=== PATIENT | female | born 1995 | race African-American/Black ===

== ENCOUNTER 2018-09-02 14:04 | Emergency (ER) | payer MEDICAID ==
[2018-09-03] MEDS ORDERED: PREPLUS CA-FE1 EACH PO (10:25)
[2018-09-03] MEDS ORDERED: ZOFRAN ODT4 MG/UDTAB PO (12:19)
== END 2018-09-02 15:32 | disposition left against medical advice (07) ==
LOC: D.ER 14:04
DX: O26.90 Pregnancy related conditions, unspecified, unspecified trimester (principal); R55 Syncope and collapse

== ENCOUNTER 2018-09-03 10:20 | Emergency (ER) | payer MEDICAID ==
[~2018-09-03] VITALS: Ht 152.4 cm; Wt 92.7 kg
[2018-09-03] MEDS ORDERED: PREPLUS CA-FE1 EACH PO (10:25)
[2018-09-03 11:15] LABS: BASOPHILS 0.5 % (0-2); EOSINOPHILS 1.3 % (0-7); HEMATOCRIT 39.2 % (36.0-48.0); HEMOGLOBIN 13.8 g/dL (12-16); IMMATURE GRANULOCYTES 0.3 % (0-5); LYMPHOCYTES 27.9 % (15-50); MCH 31.4 pg (26.0-34.0); MCHC 35.2 g/dL (31.0-37.0); MCV 89.1 fL (80.0-100.0); MEAN PLATELET VOLUME 10.4 fL (7.4-10.4); PLATELET COUNT 358 10x3/uL (130-400); RDW 13.1 % (11.5-14.5); WBC 7.7 10x3/uL (4.8-10.8)
[2018-09-03 11:17] LABS: APPEARANCE CLEAR (CLEAR); BILIRUBIN NEGATIVE (NEGATIVE); COLOR YELLOW (YELLOW); GLUCOSE NEGATIVE (NEGATIVE); KETONE LARGE mg/dL (NEGATIVE); NITRITE NEGATIVE (NEGATIVE); PROTEIN NEGATIVE (NEGATIVE); UROBILINOGEN NORMAL (NORMAL)
[2018-09-03 11:32] LABS: ALKALINE PHOSPHATASE 63 U/L (46-116); ALT (SGPT) 21 U/L (10-68); BILIRUBIN - TOTAL 0.84 mg/dL (0.2-1.3); CALC OSMOLALITY 275 mosm/kg (275-300); CALCIUM 9.4 mg/dL (8.5-10.1); CARBON DIOXIDE 28.3 mmol/L (21.0-32.0); CHLORIDE - SERUM 102 mmol/L (98-107); CREATININE - SERUM 0.7 mg/dL (0.6-1.3); GLUCOSE 85 mg/dL (74-106); POTASSIUM - SERUM 3.4 mmol/L (3.5-5.1); PROTEIN - SERUM 8.5 g/dL (6.4-8.2); SODIUM 140 mmol/L (136-145); UREA NITROGEN 7 mg/dL (7-18); eGFR NON AFRICAN AMERICAN > 90 mL/min (90-120)
[2018-09-03 11:53] LABS: HCG - QUANTITATIVE (MATERNAL) 75938 mIU/mL
[2018-09-03] MEDS ORDERED: ZOFRAN ODT4 MG/UDTAB PO (12:19)
== END 2018-09-03 12:32 | disposition home or self-care (01) ==
LOC: D.ER 10:20
PROVIDERS: Family Medicine
DX: O26.90 Pregnancy related conditions, unspecified, unspecified trimester (principal); M54.5 Low back pain

== ENCOUNTER 2018-09-17 15:55 | Emergency (ER) | payer MEDICAID ==
[~2018-09-17] VITALS: Ht 152.4 cm; Wt 90.9 kg
[~2018-09-17 15:55] MED LIST: PREPLUS CA-FE1 EACH PO; ZOFRAN ODT4 MG/UDTAB PO
[2018-09-17 16:15] VITALS: Ht 152.4 cm; Wt 90.9 kg
[2018-09-17 19:21] VITALS: BP 137/78
== END 2018-09-17 19:22 | disposition home or self-care (01) ==
LOC: D.ER 15:55
DX: O26.891 Other specified pregnancy related conditions, first trimester (principal); Z3A.09 9 weeks gestation of pregnancy; V49.9XXA Car occupant (driver) (passenger) injured in unspecified traffic accident, initial encounter; Y93.89 Activity, other specified; Y92.410 Unspecified street and highway as the place of occurrence of the external cause

== ENCOUNTER 2020-01-27 12:40 | Emergency (ER) | payer MEDICAID ==
[~2020-01-27] VITALS: Ht 152.4 cm; Wt 69.5 kg
[2020-01-27 12:49] VITALS: Ht 152.4 cm; Wt 69.5 kg
[2020-01-27 13:41] LABS: APTT 27.6 SECONDS (22.8-39.4); CALC OSMOLALITY 273 mosm/kg (275-300); CALCIUM 9.8 mg/dL (8.5-10.1); CARBON DIOXIDE 28.4 mmol/L (21.0-32.0); CHLORIDE - SERUM 105 mmol/L (98-107); CREATININE - SERUM 0.6 mg/dL (0.6-1.3); GLUCOSE 94 mg/dL (74-106); INR 0.98 (0.85-1.17); POTASSIUM - SERUM 4.1 mmol/L (3.5-5.1); PROTIME 12.9 SECONDS (11.6-15.0); SODIUM 137 mmol/L (136-145); UREA NITROGEN 12 mg/dL (7-18); eGFR NON AFRICAN AMERICAN > 90 mL/min (90-120)
[2020-01-27 13:45] LABS: BASOPHILS 0.4 % (0-2); EOSINOPHILS 1.7 % (0-7); HEMATOCRIT 35.7 % (36.0-48.0); HEMOGLOBIN 11.8 g/dL (12-16); LYMPHOCYTES 34.7 % (15-50); MCH 28.8 pg (26.0-34.0); MCHC 33.1 g/dL (31.0-37.0); MCV 87.1 fL (80.0-100.0); MEAN PLATELET VOLUME 10.9 fL (7.4-10.4); MONOCYTES 9.8 % (2-11); NEUTROPHILS 53.4 % (40-80); RDW 13.3 % (11.5-14.5); WBC 5.4 10x3/uL (4.8-10.8)
[2020-01-27 13:50] LABS: PLATELET COUNT 281 10x3/uL (130-400)
[2020-01-27 13:56] LABS: ALBUMIN 3.5 g/dL (3.4-5.0); ALKALINE PHOSPHATASE 172 U/L (30-120); ALT (SGPT) 36 U/L (10-68); BILIRUBIN - TOTAL 0.64 mg/dL (0.2-1.3); CKMB 0.4 U/L (0.0-3.6); CREATINE KINASE 58 UL (21-215); MAGNESIUM - SERUM 1.8 mg/dL (1.8-2.4); PROTEIN - SERUM 7.5 g/dL (6.4-8.2); TROPONIN-I < 0.017 ng/mL (0.000-0.060)
[2020-01-27 15:19] VITALS: BP 122/68
== END 2020-01-27 15:20 | disposition home or self-care (01) ==
LOC: D.ER 12:40
PROVIDERS: Family Medicine
DX: R07.9 Chest pain, unspecified (principal)